=== PATIENT | female | born 1995 | race Caucasian/White ===

== ENCOUNTER 2016-09-26 15:34 | Emergency (ER) | payer BC ==
[~2016-09-26] VITALS: Ht 162.6 cm; Wt 118.0 kg
[2016-09-26 16:15] VITALS: Ht 162.6 cm; Wt 118.0 kg
[2016-09-26] MEDS ORDERED: morphine 4 MG/ML VIAL IV STA (17:08)
[2016-09-26] MEDS ORDERED: SOD CHLORIDE 0.9% 1,000 ML IV STA (17:08)
[2016-09-26] MEDS ORDERED: ONDANSETRON 4 MG INJ IV STA (17:08)
[2016-09-26] MEDS ORDERED: ACETAMINOPHEN 325 MG TAB PO ONE (18:00)
--- NOTE | 2016-09-26 18:06 | ERD ---
ER Documentation Chief Complaint Date/Time DATE: 09/26/16 TIME: 17:59 Chief Complaint FEVER, RT FLANK PAIN, VOMITING SINCE LAST TUESDAY (ERIN CORTÉS PA-C) HPI Otherwise healthy 21-year-old female presents to the emergency department complaining of intermittent fever 1 week, right sided flank pain 5 days and nausea and vomiting 3 days. Patient states she has been unable to keep down food or liquids at home. Patient has attempted to treat her symptoms with Tylenol with mild relief. She currently rates her flank pain as a "squeezing " 7 out of 10 constant pain worse when pressure is applied to the area. Patient denies any dysuria, vaginal discharge, hematuria, abdominal pain or diarrhea. (ERIN CORTÉS PA-C) 21-year-old female with a chief complaint of flank pain. Patient was handed off to me by Fabiola Cortés PA-C. Evaluation of the patient is consistent with her HPI. (DANDY SALDANA PA-C) ROS All systems reviewed and are negative except as per history of present illness. (ERIN CORTÉS PA-C) Medications Home Meds Active Scripts Ondansetron (Ondansetron Odt) 4 Mg Tab.rapdis, 4 MG PO Q6H Y for NAUSEA AND/OR VOMITING for 7 Days, TAB Prov:ERIN CORTÉS PA-C 09/26/16 Naproxen* (Naprosyn*) 500 Mg Tablet, 500 MG PO BID for 7 Days, TAB Prov:ERIN CORTÉS PA-C 09/26/16 Sulfamethoxazole/Trimethoprim* (Bactrim Ds* Tablet) 1 Each Tablet, 1 TAB PO BID for 14 Days, TAB Prov:ERIN CORTÉS PA-C 09/26/16 PMhx/Soc Medical and Surgical Hx: pt denies Medical Hx, pt denies Surgical Hx History of Surgery: No Anesthesia Reaction: No Hx Neurological Disorder: No Hx Respiratory Disorders: No Hx Cardiac Disorders: No Hx Psychiatric Problems: No Hx Miscellaneous Medical Probl: No Hx Alcohol Use: No Hx Substance Use: No Hx Tobacco Use: No Smoking Status: Never smoker (ERIN CORTÉS PA-C) Physical Exam Vitals Vital Signs Date Time Temp Pulse Resp B/P Pulse Ox O2 Delivery O2 Flow Rate FiO2 09/26/16 16:15 101.3 108 16 139/70 96 (DANDY SALDANA PA-C) Physical Exam Const: Well-developed, well-nourished, in mild distress Head: Atraumatic Eyes: Normal Conjunctiva ENT: Normal External Ears, Nose and Mouth. Neck: Full range of motion..~ No meningismus. Resp: Clear to auscultation bilaterally Cardio: Regular rate and rhythm, no murmurs Abd: Soft, non tender, non distended. Normal bowel sounds Skin: No petechiae or rashes Back: Right-sided flank tenderness to palpation. No midline tenderness Ext: No cyanosis, or edema Neur: Awake and alert Psych: Normal Mood and Affect (ERIN CORTÉS PA-C) Physical Exam Mild CVA tenderness. Mild right upper quadrant tenderness. Moderate right flank pain tenderness. Cardio exam reveals regular rate and rhythm with no murmurs rubs or gallops. Pulmonary exam is clear to auscultation in all lung loredo bilaterally. Eyes are PERRLA and extraocular movements are intact bilaterally. There is no color change in sclerae. Patient's ears are grossly normal with tympanic membranes clear with cone light reflex bilaterally. Patient's mouth shows no lesions and dentition is normal. Patient is able to walk and gross ambulation examination shows no abnormalities. Abdomen is soft and nontender. Right upper quadrant tenderness with deep palpation. Patient has a history of cholecystectomy 2013. Auscultation is within normal limits in all 4 quadrants. Patient has a negative Patti's 1 tenderness and a negative psoas sign. Extremities are grossly normal with range of motion intact bilaterally. Patient is neurovascularly intact bilaterally. (DANDY SALDANA PA-C) Result Diagram: 09/26/16 1735 09/26/16 1735 Results 24 hrs Laboratory Tests Test 09/26/16 17:35 White Blood Count 10.910^3/ul Red Blood Count 4.2010^6/ul Hemoglobin 11.8g/dl Hematocrit 37.7% Mean Corpuscular Volume 89.8fl Mean Corpuscular Hemoglobin 28.1pg Mean Corpuscular Hemoglobin Concent 31.3g/dl Red Cell Distribution Width 13.4% Platelet Count 33738^3/UL Mean Platelet Volume 10.3fl Neutrophils % 71.0% Lymphocytes % 14.9% Monocytes % 13.3% Eosinophils % 0.0% Basophils % 0.3% Nucleated Red Blood Cells % 0.0/100WBC Neutrophils # 7.810^3/ul Lymphocytes # 1.610^3/ul Monocytes # 1.510^3/ul Eosinophils # 0.010^3/ul Basophils # 0.010^3/ul Nucleated Red Blood Cells # 0.010^3/ul Urine Color LT. YELLOW Urine Clarity SLIGHTLY CLOUDY Urine pH 5.5 Urine Specific [place] 1.015 Urine Ketones NEGATIVE Urine Nitrite NEGATIVE Urine Bilirubin NEGATIVE Urine Urobilinogen 1.0 E.U./dL Urine Leukocyte Esterase 1+ Urine Microscopic RBC 0-2/HPF Urine Microscopic WBC >50/HPF Urine Squamous Epithelial Cells FEW Urine Bacteria MODERATE Urine Hemoglobin 1+ Urine Glucose NEGATIVE% Urine Total Protein NEGATIVE Sodium Level 138mmol/L Potassium Level 3.6mmol/L Chloride Level 97mmol/L Carbon Dioxide Level 25mmol/L Anion Gap 20 Blood Urea Nitrogen 7mg/dl Creatinine 0.70mg/dl Glucose Level 102mg/dl Calcium Level 9.2mg/dl Total Bilirubin 1.2mg/dl Direct Bilirubin 0.00mg/dl Indirect Bilirubin 1.2mg/dl Aspartate Amino Transf (AST/SGOT) 25IU/L Alanine Aminotransferase (ALT/SGPT) 33IU/L Alkaline Phosphatase 78IU/L Total Protein 8.6g/dl Albumin 4.4g/dl Globulin 4.20g/dl Albumin/Globulin Ratio 1.04 Lipase 55U/L Current Medications Medications (Trade) Dose Ordered Sig/Dinorah Route PRN Reason Start Time Stop Time Status Last Admin Dose Admin Sodium Chloride (NS) 1,000 ml @ 1,000 mls/hr Q1H STAT IV 09/26/16 17:08 09/26/16 18:07 DC 09/26/16 17:30 Morphine Sulfate (morphine) 4 mg ONCE STAT IV 09/26/16 17:08 09/26/16 17:11 DC 09/26/16 17:30 Ondansetron HCl (Zofran Inj) 4 mg ONCE STAT IV 09/26/16 17:08 09/26/16 17:11 DC 09/26/16 17:30 Acetaminophen (Tylenol Tab) 650 mg ONCE ONCE PO 09/26/16 18:00 09/26/16 18:01 DC 09/26/16 18:00 (DANDY SALDANA PA-C) Procedures/MDM Fever well controlled with 1 dose of Tylenol in the emergency department. Patient received a bolus of fluids as well as pain and nausea medication and reports significant improvement of symptoms. 21-year-old otherwise healthy female who presents to the emergency department complaining of fever, flank pain and vomiting. Physical exam unremarkable aside from right sided flank tenderness to palpation. Vital signs reviewed. Patient presented with a fever of 101.3, pulse of 108 bpm and O2 saturation of 96%. CBC showed no evidence of systemic infection or severe anemia. CMP showed no evidence of electrolyte abnormalities, severe acidosis, alkalosis , renal failure, or liver disease. Lipase showed no evidence of acute pancreatitis. UA showed no evidence of acute infection or hematuria. Urine test was negative. Patient's history and clinical presentation consistent with acute pyelonephritis. At this time I have low suspicion for acute kidney injury, appendicitis, ectopic , ovarian torsion, or tubo-ovarian abscess. Patient to begin antibiotic therapy and continue Motrin and Tylenol for pain control. Patient to return to this facility if symptoms do not begin to improve in the next 48 hours. Based on patient's history of present illness and physical examination the decision was made to discharge. The patient was re-evaluated after ED treatment and stabilizing measures, and symptoms have improved. There is no evidence of life threatening injuries or illnesses at this time. On re-examination, patient resting in no distress, stable vital signs, reports feeling better and safe for discharge with outpatient follow up with PMD in 1-2 days. Patient given return precautions. (ERIN CORTÉS PA-C) We will go ahead and give the patient a gram of ceftriaxone before discharge. Will discharge with Bactrim p.o. twice daily 10 days. Will give patient discharge instructions with return precautions. Patient is able to tolerate p.o. on discharge. Patient is stable and there is no reason for me to try to admit this patient at this time as home therapy will suffice. Patient will also be discharged with an NSAID for fever control. I have talked to my attending and he agrees with the assessment and plan. (DANDY SALDANA PA-C) Departure Diagnosis: Primary Impression: Flank pain Additional Impressions: Nausea & vomiting Vomiting type: unspecified Vomiting Intractability: unspecified Qualified Code: R11.2 - Nausea and vomiting, intractability of vomiting not specified, unspecified vomiting type Fever Fever type: unspecified Qualified Code: R50.9 - Fever, unspecified fever cause Condition: Stable ERIN CORTÉS PA-C Sep 26, 2016 18:06 DANDY SALDANA PA-C Sep 26, 2016 19:45
[2016-09-26 18:08] LABS: ADD SCAN DIFF NO
[2016-09-26] MEDS ORDERED: NAPR-260 PO (18:12)
[2016-09-26] MEDS ORDERED: ONDA4TAB14 PO (18:12)
[2016-09-26] MEDS ORDERED: SULF1TAB31 PO (18:12)
[2016-09-26 18:14] LABS: BASOPHILS % 0.3 % (0.0-2.0); HEMATOCRIT 37.7 % (37.0-47.0); HEMOGLOBIN 11.8 g/dl (12.0-16.0); LYMPHOCYTES # 1.6 10^3/ul (0.8-2.9); LYMPHOCYTES % 14.9 % (15.0-51.0); MEAN CORPUSCULAR HEMOGLOBIN 28.1 pg (29.0-33.0); MEAN CORPUSCULAR HGB CONC 31.3 g/dl (32.0-37.0); MEAN CORPUSCULAR VOLUME 89.8 fl (82.0-101.0); MEAN PLATELET VOLUME 10.3 fl (7.4-10.4); MONOCYTE # 1.5 10^3/ul (0.3-0.9); MONOCYTES % 13.3 % (0.0-11.0); NEUTROPHIL # 7.8 10^3/ul (1.6-7.5); PLATELET COUNT 338 10^3/UL (140-415); RED CELL DISTRIBUTION WIDTH 13.4 % (11.5-14.5); WHITE BLOOD COUNT 10.9 10^3/ul (4.8-10.8)
[2016-09-26 18:18] LABS: ADD UMIC YES; ALBUMIN 4.4 g/dl (3.3-4.9); URINE BILIRUBIN (Dip) NEGATIVE (NEGATIVE); URINE BLOOD (Dip) 1+ (NEGATIVE); URINE COLOR LT. YELLOW (YELLOW); URINE GLUCOSE (Dip) NEGATIVE (NEGATIVE); URINE KETONES (Dip) NEGATIVE (NEGATIVE); URINE LEUKOCYTE ESTERASE (Dip) 1+ (NEGATIVE); URINE NITRITE (Dip) NEGATIVE (NEGATIVE); URINE TOTAL PROTEIN (Dip) NEGATIVE (NEGATIVE); URINE UROBILINOGEN (Dip) 1.0 E.U./dL (0.1-1.0)
[2016-09-26 18:19] LABS: POTASSIUM 3.6 mmol/L (3.5-5.1)
[2016-09-26 18:21] LABS: ALBUMIN/GLOBULIN RATIO 1.04; BILIRUBIN,INDIRECT 1.2 mg/dl (0-1.1); BILIRUBIN,TOTAL 1.2 mg/dl (0.2-1.3); CREATININE 0.7 mg/dl (0.44-1.00); TOTAL PROTEIN 8.6 g/dl (6.1-8.1)
[2016-09-26 18:22] LABS: CALCIUM 9.2 mg/dl (8.4-10.2)
[2016-09-26 18:32] LABS: SQUAMOUS EPITHELIAL CELL,UR FEW; URINE RBCS 0-2 /HPF (0)
[2016-09-26 18:33] LABS: BACTERIA,URINE MODERATE
[2016-09-26] MEDS ORDERED: CEFTRIAXONE 1 GM/50 ML (PMX) 50 ML IVPB ONE (20:00)
[2016-09-26 20:18] VITALS: BP 131/74; PULSE 84; RESP 16; TEMP 99.4
== END 2016-09-26 20:20 | disposition home or self-care (01) ==
LOC: FTE 15:34
DX: R10.11 Right upper quadrant pain (principal); R11.2 Nausea with vomiting, unspecified
CPT/HCPCS: 36415; 80053; 81001; 83690; 85025; 96374; 96375; J0696; J2270; J2405; J7030; Z7502; Z7610; 81003

== ENCOUNTER 2017-02-13 09:49 | Emergency (ER) | payer BC ==
[~2017-02-13] VITALS: Wt 124.0 kg
[~2017-02-13 09:49] MED LIST: NAPR-260 PO; ONDA4TAB14 PO; SULF1TAB31 PO
[2017-02-13] MEDS ORDERED: morphine 4 MG/ML VIAL IV STA (10:12)
[2017-02-13] MEDS ORDERED: LIDOCAINE/MYLANTA 40 ML BTL PO ONE (10:30)
[2017-02-13] MEDS ORDERED: FAMOTIDINE 20 MG TAB PO ONE (10:30)
[2017-02-13 10:36] LABS: BASOPHILS % 0.5 % (0.0-2.0); EOSINOPHILS # 0.1 10^3/ul (0.0-0.5); EOSINOPHILS % 1.7 % (0.0-7.0); HEMATOCRIT 36.9 % (37.0-47.0); HEMOGLOBIN 11.5 g/dl (12.0-16.0); LYMPHOCYTES # 2.1 10^3/ul (0.8-2.9); LYMPHOCYTES % 26.5 % (15.0-51.0); MEAN CORPUSCULAR HGB CONC 31.2 g/dl (32.0-37.0); MEAN PLATELET VOLUME 10.2 fl (7.4-10.4); MONOCYTE # 0.6 10^3/ul (0.3-0.9); MONOCYTES % 7.1 % (0.0-11.0); NEUTROPHILS % 63.6 % (39.0-77.0); PLATELET COUNT 320 10^3/UL (140-415); RED CELL DISTRIBUTION WIDTH 13.4 % (11.5-14.5); WHITE BLOOD COUNT 7.9 10^3/ul (4.8-10.8)
[2017-02-13 10:44] LABS: ADD UMIC NO; UR ASCORBIC ACID NEGATIVE (NEGATIVE); UR BILIRUBIN (Dip) NEGATIVE (NEGATIVE); UR BLOOD (Dip) NEGATIVE (NEGATIVE); UR CLARITY CLEAR (CLEAR); UR COLOR YELLOW (YELLOW); UR GLUCOSE (Dip) NEGATIVE (NEGATIVE); UR KETONES (Dip) NEGATIVE (NEGATIVE); UR LEUKOCYTE ESTERASE (Dip) NEGATIVE Leu/ul (NEGATIVE); UR NITRITE (Dip) NEGATIVE (NEGATIVE); UR SPECIFIC GRAVITY (Dip) 1.015 (1.003-1.030); UR TOTAL PROTEIN (Dip) NEGATIVE (NEGATIVE); UR UROBILINOGEN (Dip) NEGATIVE (NEGATIVE)
--- NOTE | 2017-02-13 10:53 | RADRPT ---
PROCEDURE: CT Abdomen and Pelvis without contrast CLINICAL INDICATION: Abdominal pain TECHNIQUE: Transaxial images were obtained through the abdomen and pelvis on a multi-slice scanner without the intravenous contrast administration. No oral contrast had previously been given. Sagit fausto and coronal re-formations were subsequently reconstructed. One or more of the following dose reduction techniques were used: - Automated exposure control. - Adjustment of the mA and/or kV according to patient size. - Use of iterative reconstruction technique. Radiation dose: CTDIvol = 23.58 mGy; DLP = 1387.95 mGy-cm. COMPARISON: No prior studies are available for comparison. FINDINGS: Lung bases: The visualized lung bases appear unremarkable. Liver: The liver is mildly enlarged but no focal lesion is identified. Gallbladder: Surgical pio are seen in the gallbladder fossa. Bile ducts: The intra and extrahepatic bile ducts are normal in caliber. Pancreas: Appears normal with no mass or inflammation evident. Spleen: Normal in size with no focal lesion. Adrenals: Normal with no mass identified. Kidneys, ureters and bladder: The kidneys are normal in size and there is no mass, pathological calc ification, or hydronephrosis evident. There is no perinephric stranding. The ureters are normal in c aliber and no ureteroliths are identified. The bladder appears unremarkable. Reproductive organs: An IUD is seen within the uterus. No adnexal mass is evident. Stomach and bowel: The stomach and bowel appear unremarkable. Substantial stool is seen within the r ight colon. There is no evidence of bowel obstruction or inflammation. Appendix: A normal vermiform appendix is evident. Peritoneum: No free intraperitoneal fluid or air is identified. There is a small fat containing umbi lical hernia. Aorta: Normal in caliber with no aneurysmal dilatation. IVC: Unremarkable. Lymph nodes: No pathologically enlarged nodes are identified. Osseous structures: The osseous elements appear intact. IMPRESSION: 1. Substantial stool seen in the colon but there is no evidence of bowel obstruction or inflammatio n with a normal vermiform appendix evident. 2. No evidence of urinary outflow obstruction or ureterolithiasis. 3. Status post cholecystectomy with no bile duct dilatation or pancreatic pathology evident. 4. An IUD is seen within the uterus 5. There is no free intraperitoneal fluid or air. 6. Small fat containing umbilical hernia. Sai Noel Physician Date Time Electronically viewed and signed by Sai Noel Physician on 02/13/2017 10:52 RH/
[2017-02-13 10:54] LABS: ALBUMIN 3.9 g/dl (3.3-4.9); ALBUMIN/GLOBULIN RATIO 1.18; BILIRUBIN,INDIRECT 0.4 mg/dl (0-1.1); BILIRUBIN,TOTAL 0.4 mg/dl (0.2-1.3); CALCIUM 9.6 mg/dl (8.4-10.2); CREATININE 0.58 mg/dl (0.44-1.00); POTASSIUM 4.4 mmol/L (3.5-5.1); TOTAL PROTEIN 7.2 g/dl (6.1-8.1)
[2017-02-13] MEDS ORDERED: FAMO-96 PO (11:55)
[2017-02-13] MEDS ORDERED: DOCU-144 PO (11:55)
[2017-02-13 12:07] VITALS: BP 115/60; PULSE 72; RESP 18; TEMP 98.7
--- NOTE | 2017-02-13 14:55 | ERD ---
ER Documentation Chief Complaint Date/Time DATE: 02/13/17 TIME: 14:51 Chief Complaint ap onset 2 hrs ago HPI 21-year-old female patient with a past medical history of status post cholecystectomy 2012 presents to the ED complaining of epigastric region as a burning sensation and also has right and left lower quadrant abdominal pain. Reports that this started about 2 hours prior to arrival today. Describes the pain as achy and rates it a 5 out of 10. States that her last bowel movement was yesterday. Reports that her last menses was on January 26, 2017. Denies any fever, chills, nausea, vomiting, diarrhea, constipation. ROS All systems reviewed and are negative except as per history of present illness. Medications Home Meds Active Scripts Famotidine* (Pepcid*) 20 Mg Tablet, 20 MG PO BID, #20 TAB Prov:LIAN CASTILLO PA-C 02/13/17 Docusate Sodium* (Colace*) 100 Mg Capsule, 100 MG PO TID, #30 CAP Prov:LIAN CASTILLO PA-C 02/13/17 Ondansetron (Ondansetron Odt) 4 Mg Tab.rapdis, 4 MG PO Q6H Y for NAUSEA AND/OR VOMITING for 7 Days, TAB Prov:ERIN JOSEPH PA-C 09/26/16 Naproxen* (Naprosyn*) 500 Mg Tablet, 500 MG PO BID for 7 Days, TAB Prov:ERIN JOSEPH PA-C 09/26/16 Sulfamethoxazole/Trimethoprim* (Bactrim Ds* Tablet) 1 Each Tablet, 1 TAB PO BID for 14 Days, TAB Prov:ERIN JOSEPH PA-C 09/26/16 Allergies Allergies: Coded Allergies: No Known Allergy (Unverified , 02/13/17) PMhx/Soc History of Surgery: No Anesthesia Reaction: No Hx Neurological Disorder: No Hx Respiratory Disorders: No Hx Cardiac Disorders: No Hx Psychiatric Problems: No Hx Miscellaneous Medical Probl: No Hx Alcohol Use: No Hx Substance Use: No Hx Tobacco Use: No Smoking Status: Never smoker Physical Exam Vitals Vital Signs Date Time Temp Pulse Resp B/P Pulse Ox O2 Delivery O2 Flow Rate FiO2 02/13/17 12:07 98.7 72 18 115/60 100 Room Air 02/13/17 09:51 98.7 82 18 141/84 99 Physical Exam Const: [id number], well-nourished. In no acute distress. Head: Atraumatic, normocephalic Eyes: Normal Conjunctiva without injection. No purulent discharge. ENT: Normal external ear, nose. Moist oropharynx without tonsillar exudates. Non -erythematous pharynx. Uvula midline. No drooling. No trismus. Neck: No cervical midline tenderness. Full range of motion. No meningismus. No cervical lymphadenopathy. No JVD. Resp: Clear to auscultation bilaterally. No wheezing, rhonchi, rales, or crackles. No accessory muscle use. No retractions. Cardio: Regular rate and rhythm. No murmurs, rubs or gallops. Abd: Soft, diffuse generalized tenderness in the right and left upper and lower quadrants. Non distended. Normal bowel sounds. No palpable masses. No rebound tenderness. No guarding. Negative McBurney's point. Negative psoas sign. Negative obturator sign. Skin: No petechiae or rashes Back: No midline tenderness. No CVA tenderness. Ext: No cyanosis, or edema. Neur: Awake and alert. Normal gait. Normal coordination. Psych: Normal Mood and Affect Result Diagram: 02/13/17 1027 02/13/17 1027 Results 24 hrs Laboratory Tests Test 02/13/17 10:10 02/13/17 10:27 Urine Color YELLOW Urine Clarity CLEAR Urine pH 7.0 Urine Specific [place] 1.015 Urine Ketones NEGATIVEmg/dL Urine Nitrite NEGATIVEmg/dL Urine Bilirubin NEGATIVEmg/dL Urine Urobilinogen NEGATIVEmg/dL Urine Leukocyte Esterase NEGATIVELeu/ul Urine Hemoglobin NEGATIVEmg/dL Urine Glucose NEGATIVEmg/dL Urine Total Protein NEGATIVEmg/dl White Blood Count 7.910^3/ul Red Blood Count 4.1010^6/ul Hemoglobin 11.5g/dl Hematocrit 36.9% Mean Corpuscular Volume 90.0fl Mean Corpuscular Hemoglobin 28.0pg Mean Corpuscular Hemoglobin Concent 31.2g/dl Red Cell Distribution Width 13.4% Platelet Count 39113^3/UL Mean Platelet Volume 10.2fl Neutrophils % 63.6% Lymphocytes % 26.5% Monocytes % 7.1% Eosinophils % 1.7% Basophils % 0.5% Nucleated Red Blood Cells % 0.0/100WBC Neutrophils # (Manual) 5.010^3/ul Lymphocytes # 2.110^3/ul Monocytes # 0.610^3/ul Eosinophils # 0.110^3/ul Basophils # 0.010^3/ul Nucleated Red Blood Cells # 0.010^3/ul Sodium Level 138mmol/L Potassium Level 4.4mmol/L Chloride Level 102mmol/L Carbon Dioxide Level 28mmol/L Anion Gap 12 Blood Urea Nitrogen 8mg/dl Creatinine 0.58mg/dl Glucose Level 97mg/dl Calcium Level 9.6mg/dl Total Bilirubin 0.4mg/dl Direct Bilirubin 0.00mg/dl Indirect Bilirubin 0.4mg/dl Aspartate Amino Transf (AST/SGOT) 36IU/L Alanine Aminotransferase (ALT/SGPT) 63IU/L Alkaline Phosphatase 66IU/L Total Protein 7.2g/dl Albumin 3.9g/dl Globulin 3.30g/dl Albumin/Globulin Ratio 1.18 Lipase 63U/L Current Medications Medications (Trade) Dose Ordered Sig/Dinorah Route PRN Reason Start Time Stop Time Status Last Admin Dose Admin Miscellaneous Medication (Gi Cocktail (2)) 40 ml ONCE ONCE PO 02/13/17 10:30 02/13/17 10:31 DC 02/13/17 10:31 Famotidine (Pepcid) 20 mg ONCE ONCE PO 02/13/17 10:30 02/13/17 10:31 DC 02/13/17 10:31 Morphine Sulfate (morphine) 4 mg ONCE STAT IV 02/13/17 10:12 02/13/17 10:14 DC 02/13/17 10:25 Procedures/MDM 21-year-old patient with no significant past medical history presents the ED complaining of abdominal pain that started earlier today, 2 hours prior to arrival. Patient is afebrile and nontoxic-appearing. Patient has normal vital signs. Patient was further worked up with CBC, CMP, lipase, UA, urine , CT of the abdomen and pelvis without contrast. Patient's pain and symptoms have improved after treatment with 20 mg IV famotidine, 4 mg IV morphine, GI cocktail. CBC: Leukocytosis of 11.5. No e/o of systemic infection. No e/o anemia. CMP: No e/o severe acidosis, alkalosis, renal failure, diabetic ketoacidosis, liver disease Lipase within normal limits. Urine: No leukocyte esterase, no nitrites, no hematuria. Urine : Negative PROCEDURE: CT Abdomen and Pelvis without contrast CLINICAL INDICATION: Abdominal pain TECHNIQUE: Transaxial images were obtained through the abdomen and pelvis on a multi-slice scanner without the intravenous contrast administration. No oral contrast had previously been given. Sagittal and coronal re-formations were subsequently reconstructed. One or more of the following dose reduction techniques were used: - Automated exposure control. - Adjustment of the mA and/or kV according to patient size. - Use of iterative reconstruction technique. Radiation dose: CTDIvol = 23.58 mGy; DLP = 1387.95 mGy-cm. COMPARISON: No prior studies are available for comparison. FINDINGS: Lung bases: The visualized lung bases appear unremarkable. Liver: The liver is mildly enlarged but no focal lesion is identified. Gallbladder: Surgical pio are seen in the gallbladder fossa. Bile ducts: The intra and extrahepatic bile ducts are normal in caliber. Pancreas: Appears normal with no mass or inflammation evident. Spleen: Normal in size with no focal lesion. Adrenals: Normal with no mass identified. Kidneys, ureters and bladder: The kidneys are normal in size and there is no mass, pathological calcification, or hydronephrosis evident. There is no perinephric stranding. The ureters are normal in caliber and no ureteroliths are identified. The bladder appears unremarkable. Reproductive organs: An IUD is seen within the uterus. No adnexal mass is evident. Stomach and bowel: The stomach and bowel appear unremarkable. Substantial stool is seen within the right colon. There is no evidence of bowel obstruction or inflammation. Appendix: A normal vermiform appendix is evident. Peritoneum: No free intraperitoneal fluid or air is identified. There is a small fat containing umbilical hernia. Aorta: Normal in caliber with no aneurysmal dilatation. IVC: Unremarkable. Lymph nodes: No pathologically enlarged nodes are identified. Osseous structures: The osseous elements appear intact. IMPRESSION: 1. Substantial stool seen in the colon but there is no evidence of bowel obstruction or inflammation with a normal vermiform appendix evident. 2. No evidence of urinary outflow obstruction or ureterolithiasis. 3. Status post cholecystectomy with no bile duct dilatation or pancreatic pathology evident. 4. An IUD is seen within the uterus 5. There is no free intraperitoneal fluid or air. 6. Small fat containing umbilical hernia. Patient has a substantial amount of stool seen in colon however no bowel obstruction. Small fat containing umbilical hernia however no strangulation or incarceration. Low suspicion for gastritis, GERD, peptic ulcer disease, cholecystitis, choledocholithiasis, cholangitis, pancreatitis, appendicitis, bowel obstruction, ileus, volvulus, nephrolithiasis, pyelonephritis, hepatitis, perforated viscus, diverticulitis, abdominal hernia, acute abdomen, mesenteric ischemia or other emergent conditions. Discharge medications: Famotidine, Colace Follow up with primary care physician in 1-2 days for referral to rn urology. Instructed patient to return to the ED sooner for any worsening symptoms. Patient's questions were answered. Patient understood and agreed with discharge plan. Patient discharged stable. Departure Diagnosis: Primary Impression: Abdominal pain Abdominal location: unspecified location Qualified Code: R10.9 - Abdominal pain, unspecified abdominal location Condition: Stable Patient Instructions: Abdominal Pain, Understanding Gastritis, Constipation ( Adult), Hernia (Inguinal, Ventral, Umbilical) Referrals: [facility] YOU HAVE RECEIVED A MEDICAL SCREENING EXAM AND THE RESULTS INDICATE THAT YOU DO NOT HAVE A CONDITION THAT REQUIRES URGENT TREATMENT IN THE EMERGENCY DEPARTMENT. FURTHER EVALUATION AND TREATMENT OF YOUR CONDITION CAN WAIT UNTIL YOU ARE SEEN IN YOUR DOCTORS OFFICE WITHIN THE NEXT 1-2 DAYS. IT IS YOUR RESPONSIBILITY TO MAKE AN APPOINTMENT FOR FOLOW-UP CARE. IF YOU HAVE A PRIMARY DOCTOR --you should call your primary doctor and schedule an appointment IF YOU DO NOT HAVE A PRIMARY DOCTOR YOU CAN CALL OUR PHYSICIAN REFERRAL HOTLINE AT IF YOU CAN NOT AFFORD TO SEE A PHYSICIAN YOU CAN CHOSE FROM THE FOLLOWING [facility] CLINICS [facility] [address] [facility] [address] [facility] [address] [facility] [address] [facility] [address] [facility]. [facility]. [address] [facility]. [facility] YOU HAVE RECEIVED A MEDICAL SCREENING EXAM AND THE RESULTS INDICATE THAT YOU DO NOT HAVE A CONDITION THAT REQUIRES URGENT TREATMENT IN THE EMERGENCY DEPARTMENT. FURTHER EVALUATION AND TREATMENT OF YOUR CONDITION CAN WAIT UNTIL YOU ARE SEEN IN YOUR DOCTORS OFFICE WITHIN THE NEXT 1-2 DAYS. IT IS YOUR RESPONSIBILITY TO MAKE AN APPOINTMENT FOR FOLOW-UP CARE. IF YOU HAVE A PRIMARY DOCTOR --you should call your primary doctor and schedule and appointment IF YOU DO NOT HAVE A PRIMARY DOCTOR YOU CAN CALL OUR PHYSICIAN REFERRAL HOTLINE AT . IF YOU CAN NOT AFFORD TO SEE A PHYSICIAN YOU CAN CHOSE FROM THE FOLLOWING [facility] INSTITUTIONS: [facility] [address] [place] [address] [facility] [address] [place] [address] [facility] [address] [place] [address] [facility] URGENT CARE/SPECIALTIES Additional Instructions: Call your primary care doctor TOMORROW for an appointment during the next 2-3 days.See the doctor sooner or return here if your condition worsens before your appointment time. LIAN CASTILLO PA-C Feb 13, 2017 14:55
== END 2017-02-13 12:08 | disposition home or self-care (01) ==
LOC: FTE 09:49
DX: R10.84 Generalized abdominal pain (principal)
CPT/HCPCS: 36415; 74176; 80053; 81003; 83690; 85025; 96374; J2270; Z7502; Z7610